=== PATIENT | male | born 1995 | race Caucasian/White ===

== ENCOUNTER 2025-09-03 17:59 | Emergency (ER) | payer OTHER, SELFPAY ==
[2025-09-03] VITALS (13 sets, daily range): BP systolic 105–121; BP diastolic 58–75; PULSE 78–89; TEMP 37.7; O2SAT 98–100; BMI 25.1
--- OUTSIDE RECORDS SUMMARY | 2025-09-03 18:07 | XMS_ITS | Clinical Summary ---
Author Organization [facility] Address [address] [place] [address] Care Team Providers Care [employer] Quality Inspector Name Role Phone Bettina Alcaraz MD Primary Care Provider [phone] Social History Tobacco Use Types Packs/Day Years Used Date Smoking Tobacco: Never Assessed Sex and Gender Information Value Date Recorded Sex Assigned at Not on file Legal Sex Male 7:11 PM EDT Gender Identity Not on file Sexual Orientation Not on file Plan of Treatment Not on file Care Teams [employer] Quality Inspector Relationship Specialty Start Date End Date Bettina Alcaraz MD [address] [place] [address] [address] [place] [address] PCP - General Family Medicine 03/23/23
[2025-09-03 18:32] LABS: SARS-CoV-2 Ag NEGATIVE (NEGATIVE)
--- NOTE | 2025-09-03 19:24 | ED.GENADUL1 ---
HPI HPI - General Adult General Chief complaint: Nausea/Vomiting/Diarrhea Stated complaint: Nausea/Vomiting/Diarrhea Time Seen by Provider: 09/03/25 19:18 Source: patient Mode of arrival: walk-in Limitations: no limitations History of Present Illness HPI narrative: 30-year-old male presents for nausea vomiting and diarrhea which began yesterday. He his has been sick with similar symptoms as well. He has not had hematemesis or blood in his stool. He states he has had a low-grade fever. Related Data Previous Rx's ?Medication ?Instructions ?Recorded ondansetron 4 mg disintegrating 4 mg PO Q6H PRN nausea and 09/03/25 tablet vomiting #20 tabs Allergies Allergy/AdvReac Type Severity Reaction Status Date / Time Penicillins Allergy Unknown Verified 09/03/25 18:09 Review of Systems ROS Narrative A ten point review of systems is negative except as noted above. PFSH PFSH Social History Little interest or pleasure in doing things: not at all Feeling down, depressed, or hopeless: not at all Exam Narrative Exam Narrative: Nurses note and vital signs reviewed General:The patient appears well and in no apparent distress.Patient is resting comfortably on cart. Skin:Warm, dry, no pallor noted.There is no rash noted. Head:Normocephalic, atraumatic Eye: Normal conjunctiva, no drainage Ears, Nose, Mouth, and Throat: oral mucosa is moist. Nares patent. Cardiovascular:Regular Rate and Rhythm Respiratory:Patient is in no distress, no accessory muscle use, lungs are clear to auscultation, no wheezing, rales or rhonchi Back:non-tender GI: Soft and nontender nondistended Musculoskeletal: No joint swelling Neurological:A&O, normal speech Psychiatric:Cooperative Constitutional Vital Signs, click to edit/add: Last Vital Signs Temp 99.9 F 09/03/25 18:06 Pulse 89 09/03/25 18:06 Resp 18 09/03/25 18:06 BP 105/75 09/03/25 18:06 Pulse Ox 98 09/03/25 18:06 O2 Del Method Room Air 09/03/25 18:06 Course Vital Signs Vital signs: Vital Signs Temperature 99.9 F 09/03/25 18:06 Pulse Rate 89 09/03/25 18:06 Respiratory Rate 18 09/03/25 18:06 Blood Pressure 105/75 10/20/25 18:06 Pulse Oximetry 98 09/03/25 18:06 Oxygen Delivery Method Room Air 09/03/25 18:06 Temperature 99.9 F 09/03/25 18:06 Pulse Rate 89 09/03/25 18:06 Respiratory Rate 18 09/03/25 18:06 Blood Pressure 105/75 09/03/25 18:06 Pulse Oximetry 98 09/03/25 18:06 Oxygen Delivery Method Room Air 09/03/25 18:06 Medical Decision Making MDM Narrative Medical decision making narrative: Blood work is essentially normal. He was given IV fluids and Zofran and is discharged home with a prescription for Zofran. Treatment diagnosis and follow-up were discussed with the patient. Differential Diagnosis Differential Diagnosis: Gastroenteritis, dehydration Lab Data Lab results reviewed: Yes I reviewed the patient's lab results Labs: Lab Results 09/03/25 09/03/25 Range/Units 18:12 19:15 WBC 6.5 (4.0-11.0) 10^3/uL RBC 5.32 (4.70-6.10) 10^6/uL Hgb 16.3 (14.0-18.0) g/dL Hct 46.9 (42.0-54.0) % MCV 88.2 (80.0-94.0) fL MCH 30.6 (25.9-34.0) pg MCHC 34.8 (29.9-35.2) g/dL RDW 11.7 (11.0-15.0) % Plt Count 233 (150-450) 10^3/uL MPV 10.3 (9.5-13.5) fL Neut % (Auto) 61.1 (43.0-75.0) % Lymph % (Auto) 23.4 (20.5-60.0) % [place] % (Auto) 12.6 H (1.7-12.0) % Eos % (Auto) 2.2 (0.9-7.0) % Baso % (Auto) 0.5 (0.2-2.0) % Neut # (Auto) 4.0 (1.4-6.5) 10^3/uL Lymph # (Auto) 1.5 (1.2-3.8) 10^3/uL [place] # (Auto) 0.8 (0.3-0.8) 10^3/uL Eos # (Auto) 0.1 (0.0-0.7) 10^3/uL Baso # (Auto) 0.0 (0.0-0.1) 10^3/uL Abs Immat Gran (auto) 0.01 (0.00-0.03) 10^3/uL Imm/Tot Granulo (auto) 0.2 (0.0-0.5) % Sodium 138 (136-145) mmol/L Potassium 3.4 L (3.5-5.1) mmol/L Chloride 101 (98-107) mmol/L Carbon Dioxide 26.2 (21.0-32.0) mmol/L Anion Gap 14.2 BUN 9.0 (7.0-18.0) mg/dL Creatinine 0.87 (0.70-1.30) mg/dL Est GFR ( Amer) >60 (>=60 mL/min/1.73m^2) Est GFR (Non-Af Amer) >60 (>=60 mL/min/1.73m^2) BUN/Creatinine Ratio 10.3 Glucose 80 (74-106) mg/dL Calcium 8.4 L (8.5-10.1) mg/dL Influenza Type A Ag Negative Influenza Type B Ag Negative SARS-CoV-2 Ag (CV2AG) Negative (NEGATIVE) Discharge Plan Discharge Chief Complaint: Nausea/Vomiting/Diarrhea Clinical Impression: Nausea, vomiting, and diarrhea Patient Disposition: Home, Self-Care Time of Disposition Decision: 20:14 Condition: Good Mode of Transportation: Private Vehicle Prescriptions / Home Meds: New ondansetron 4 mg tablet,disintegrating 4 mg PO Q6H PRN (Reason: nausea and vomiting) Qty: 20 0RF Print Language: Luxembourgish Instructions: Acute Nausea and Vomiting (ED), Acute Diarrhea (ED) Referrals: Physician,Non-Staff, MD [Primary Care Provider] - 1 week
[2025-09-03] MEDS: 0.9 % SODIUM CHLORIDE 1,000 ML 1000 ML IV (19:33)
[2025-09-03 19:45] LABS: Hematocrit 46.9 % (42.0-54.0); Hemoglobin 16.3 g/dL (14.0-18.0); Immature Granulocytes Abs Auto 0.01 10^3/uL (0.00-0.03); Immature Granulocytes Pct Auto 0.2 % (0.0-0.5); Lymphocytes Absolute Auto 1.5 10^3/uL (1.2-3.8); Mean Corpuscular HGB Conc 34.8 g/dL (29.9-35.2); Mean Corpuscular Hemoglobin 30.6 pg (25.9-34.0); Mean Corpuscular Volume 88.2 fL (80.0-94.0); Platelet Count 233 10^3/uL (150-450); Red Blood Count 5.32 10^6/uL (4.70-6.10); White Blood Count 6.5 10^3/uL (4.0-11.0)
[2025-09-03 20:06] LABS: Anion Gap 14.2; Blood Urea Nitrogen 9.0 mg/dL (7.0-18.0); Calcium 8.4 mg/dL (8.5-10.1); Carbon Dioxide 26.2 mmol/L (21.0-32.0); Chloride 101 mmol/L (98-107); Estimated GFR (African America >60 (>=60 mL/min/1.73m^2); Estimated GFR (Non-African Ame >60 (>=60 mL/min/1.73m^2); Glucose 80 mg/dL (74-106); Potassium 3.4 mmol/L (3.5-5.1); Sodium 138 mmol/L (136-145)
--- NOTE | 2025-09-03 21:13 | PC.NURSE ---
i gave this patient verbal and written discharge orders and 1 e-script, and this patient ys to understanding these. at time of discharge this patient voices no concerns, needs and shows no signs of distress
== END 2025-09-03 21:13 | disposition home or self-care (01) ==
PROVIDERS: Emergency Medicine; Emergency Provider Emergency Medicine
DX: R11.2 Nausea with vomiting, unspecified (principal); R19.7 Diarrhea, unspecified; R50.9 Fever, unspecified
CPT/HCPCS: 36415; 80048; 85025; 87804; 87811; 96361; 96374; 99285; J2405